=== PATIENT | male | born 1960 | race Two or more races ===

== ENCOUNTER → 2024-03-01 | Outpatient (CLI) | payer BC, SELFPAY | END | disposition home or self-care (01) | LOC: SLDO 12:49 | PROVIDERS: Referring Provider Family Medicine; Visit Provider Family Medicine | DX: L03.116 Cellulitis of left lower limb (principal) | CPT/HCPCS: 87070; 87077; 87186; 87205 ==

== ENCOUNTER → 2024-09-09 | Outpatient (CLI) | payer BC, SELFPAY ==
--- NOTE | 2024-09-09 11:30 | XR_ITS ---
Examination: Abdomen sonogram, Limited Date and time of exam: September 09, 2024 1147 hours INDICATIONS: Diagnosis cirrhosis Technique: Real-time edouard scale transabdominal sonographic images of the upper abdomen obtained. Findings: Negative for gallstones Gallbladder wall 0.3 cm Common bile duct 0.2 cm Pancreatic head 2.7 cm Liver 13.4 cm irregular contour fatty infiltration no focal liver lesions Normal hepatopedal portal venous flow Patent IVC IMPRESSION: Normal gallbladder Cirrhosis, no focal liver lesions
[2024-09-09 13:09] LABS: Basophils # (Auto) 0.1 Thou/mm3 (0.0-0.2); Basophils % (Auto) 1 % (0-2.5); Eosinophils # (Auto) 0.2 Thou/mm3 (0.0-0.5); Eosinophils % (Auto) 3 % (0-10); Hematocrit 38.5 % (41.0-53.0); Hemoglobin 13.4 g/dL (13.5-16.0); Immature Granulocytes % (Auto) 0 % (0-0); Immature Granulocytes Auto 0.03 Thou/mm3 (0.00-0.00); Lymphocytes # (Auto) 1.4 Thou/mm3 (1.0-4.8); Lymphocytes % (Auto) 19 % (10-50); Mean Corpuscular HGB Conc 34.8 g/dl (31.0-37.0); Mean Corpuscular Hemoglobin 30.6 pg (25.0-35.0); Mean Corpuscular Volume 88 fL (80-100); Monocytes # (Auto) 0.7 Thou/mm3 (0.0-0.8); Monocytes % (Auto) 9 % (0-12); Neutrophils # (Auto) 5.1 Thou/mm3 (1.8-7.7); Neutrophils % (Auto) 69 % (37-80); Nucleated Red Blood Cell % 0 /100 WBC (0); Platelet Count 155 Thou/mm3 (140-440); RDW Standard Deviation 41.8 fL (35.1-43.9); Red Blood Count 4.38 Miln/mm3 (4.50-5.90); White Blood Count 7.4 Thou/mm3 (3.8-10.6)
[2024-09-09 13:10] LABS: INR 1.1 (0.9-1.3); Prothrombin Time 11.9 Seconds (9.0-12.2)
[2024-09-09 13:17] LABS: Alanine Aminotransferase 32 U/L (10-49); Albumin, Serum 4.3 gm/dL (3.4-4.8); Albumin/Globulin Ratio 1.4 (1.2-2.2); Alkaline Phosphatase 60 U/L (46-116); Anion Gap 11 (7-16); Aspartate Amino Transferase 25 U/L (0-34); BUN/Creatinine Ratio 12 Ratio (12-20); Bilirubin,Total 0.7 mg/dL (0.3-1.2); Blood Urea Nitrogen 17 mg/dL (9-23); Calcium 8.8 mg/dL (8.3-10.6); Calcium (Corrected) 8.8 mg/dL (8.5-10.1); Carbon Dioxide 23.4 mMol/L (20.0-31.0); Chloride 110 mMol/L (98-107); Creatinine (Component) 1.4 mg/dL (0.6-1.3); Free T4 (Free Thyroxine) 1.42 ng/dL (0.89-1.76); Glucose 134 mg/dL (74-106); Osmolality,Calculated 290 (275-295); Potassium 4.2 mMol/L (3.4-5.1); Sodium 144 mMol/L (136-145); Thyroid Stimulating Hormone 3.75 uIU/mL (0.55-4.78); Total Protein 7.3 gm/dL (5.7-8.2); eGFR 56 See Note
== END | disposition home or self-care (01) ==
LOC: CDIM 11:38 → COPL 11:58
PROVIDERS: Specialist; PCP Family Medicine; Referring Provider Family Medicine; Visit Provider Radiology Diagnostic Radiology
DX: K74.60 Unspecified cirrhosis of liver (principal); E03.0 Congenital hypothyroidism with diffuse goiter; R14.0 Abdominal distension (gaseous); K92.2 Gastrointestinal hemorrhage, unspecified
CPT/HCPCS: 36415; 76705; 80053; 82105; 84439; 84443; 85025; 85610

== ENCOUNTER → 2024-09-30 | Outpatient (CLI) | payer BC, SELFPAY ==
--- NOTE | 2024-09-30 13:49 | XR_ITS ---
Examination: Knee, right , 3 views Technique: Knee AP, lateral, oblique 3 views Date and time of exam: September 30, 2024 at 1404 hours INDICATIONS: Right knee pain 5 months. FINDINGS: Mild osteopenia Total right knee arthroplasty. Satisfactory alignment No fracture IMPRESSION: Total right knee arthroplasty with satisfactory alignment
== END | disposition home or self-care (01) ==
PROVIDERS: PCP Family Medicine; Referring Provider Family Medicine; Visit Provider Family Medicine
DX: M25.561 Pain in right knee (principal); Z96.651 Presence of right artificial knee joint
CPT/HCPCS: 73562

== ENCOUNTER → 2024-10-03 | Outpatient (CLI) | payer BC, SELFPAY ==
--- NOTE | 2024-10-03 10:59 | XR_ITS ---
Examination: Lumbar spine, 5 views Technique: Lumbar spine AP, lateral, coned lateral lower lumbar spine, bilateral obliques 5 views Exam date and time: October 03, 2024 1114 hours INDICATIONS: Low back pain beginning one week ago. FINDINGS: Prominent lumbar spondylosis No lumbar fracture Advanced disc narrowing L5-S1 No spondylolisthesis IMPRESSION: Advanced degenerative disc disease L5-S1 Prominent lumbar spondylosis
--- NOTE | 2024-10-03 10:59 | XR_ITS ---
Examination: Thoracic spine 3 views Technique one AP lateral coned lateral upper dorsal spine 3 views Date and time: October 03, 2024 1117 hours INDICATIONS: Upper back pain beginning one week ago. FINDINGS: Adequate alignment thoracic vertebral bodies No acute thoracic fracture Moderate diffuse thoracic degenerative disc disease Prominent thoracic spondylosis IMPRESSION: Moderate diffuse thoracic degenerative disc disease Prominent thoracic spondylosis
== END | disposition home or self-care (01) ==
LOC: CDIM 10:53
PROVIDERS: PCP Family Medicine; Referring Provider Family Medicine; Visit Provider Family Medicine
DX: M51.379 Other intervertebral disc degeneration, lumbosacral region without mention of lumbar back pain or lower extremity pain (principal); M47.816 Spondylosis without myelopathy or radiculopathy, lumbar region; M51.34 Other intervertebral disc degeneration, thoracic region; M47.814 Spondylosis without myelopathy or radiculopathy, thoracic region
CPT/HCPCS: 72072; 72110

== ENCOUNTER 2024-11-04 08:30 | Day surgery (SDC) | payer BC, SELFPAY ==
[2024-11-01 14:36] VITALS: BMI 29.2
[2024-11-04] VITALS (9 sets, daily range): BP systolic 107–148; BP diastolic 69–91; PULSE 64–96; RESP 11–22; TEMP 36.6; O2SAT 95–100; BMI 30.1
[2024-11-04] MEDS: SODIUM CHLORIDE 0.9% 500 ML 500 ML 20 ML IV (10:49)
[2024-11-04] MEDS: MIDAZOLAM INJ 1 MG/ML VIAL 2 ML (ASD USE ONLY) 2 MG IVP (10:49)
[2024-11-04] MEDS: fentaNYL CIT INJ 50 mCg/ML AMP 2ML (ASD USE ONLY) IVP (10:49)
[2024-11-04] MEDS: BENZOCAINE 20% (Hurricaine) SPRAY 1 DOSE TOP (10:49)
== END 2024-11-04 11:31 | disposition home or self-care (01) ==
PROVIDERS: PCP Family Medicine; Referring Provider Specialist; Visit Provider Specialist
PROC: (CPT 43239; principal; 2024-11-04 09:45)
DX: K31.89 Other diseases of stomach and duodenum (principal); K74.60 Unspecified cirrhosis of liver; I85.10 Secondary esophageal varices without bleeding
CPT/HCPCS: 43235; J1200; J2250; J3010; J7999; A9270

== ENCOUNTER → 2024-12-03 | Outpatient (CLI) | payer BC, SELFPAY ==
--- NOTE | 2024-12-03 13:30 | XR_ITS ---
Examination: CT thoracic spine, without contrast. 2-D sagittal reconstructions. 2-D coronal reconstructions. 3-D reconstructions. Date and time of exam:December 03, 2024 1405 hours INDICATIONS: Mid back pain 2 months CTDI: vol (mGy):32.3 DLP: (mGycm):1144 Technique: Multiple 1.25 mm axial sections of the thoracic spine without intravenous contrast have been obtained. 2-D sagittal and coronal reconstructions have been obtained. 3-D reconstructions have been obtained. Low dose protocols were performed. One or more of the following dose reduction techniques were used; automated exposure control, adjustment of the mA and/or KV according to patient size, use of iterative reconstruction technique. Findings: Significant osteopenia No thoracic fracture Prominent thoracic spondylosis. Mild to moderate diffuse thoracic disc narrowing. Thoracic pedicles laminae and transverse processes appear intact Axial images demonstrate no focal thoracic disc protrusions IMPRESSION: Mild to moderate diffuse thoracic degenerative disc disease No significant spinal stenosis
--- NOTE | 2024-12-03 14:00 | XR_ITS ---
Examination: CT lumbar spine, without contrast. 2-D sagittal reconstructions. 2-D coronal reconstructions. 3-D reconstructions. Date and time of exam:December 03, 2024 at 1405 hours INDICATIONS: Low back pain beginning 2 months ago CTDI: vol (mGy):23.9 DLP: (mGycm):624 Technique: Multiple 1.25 mm axial sections of the lumbar spine without intravenous contrast have been obtained. 2-D sagittal and coronal reconstructions have been obtained. 3-D reconstructions have been obtained. Low dose protocols were performed. One or more of the following dose reduction techniques were used; automated exposure control, adjustment of the mA and/or KV according to patient size, use of iterative reconstruction technique. Findings: Severe osteopenia No lumbar fracture Prominent lumbar spondylosis Diffuse [id number] lumbar disc narrowing most prominent L5-S1 No spondylolisthesis Lumbar pedicles laminated transverse and posterior spinous processes intact L5-S1 no disc protrusion L4-L5 severe overall spinal stenosis, axial image 88, 6 mm central lumbar disc bulge, facet arthropathy and thickening of ligamentum flavum circumferentially narrowing the thecal sac L3-L4 no disc protrusion L2-L3 no disc protrusion L1-L2 no disc protrusion IMPRESSION: Severe overall spinal stenosis L4-L5 as above, consider correlation with MRI lumbar spine without contrast follow-up
== END | disposition home or self-care (01) ==
LOC: CCTX 13:45
PROVIDERS: PCP Family Medicine; Referring Provider Family Medicine; Visit Provider Family Medicine
DX: M51.34 Other intervertebral disc degeneration, thoracic region (principal); M48.061 Spinal stenosis, lumbar region without neurogenic claudication
CPT/HCPCS: 72128; 72131

== ENCOUNTER → 2025-04-14 | Outpatient (CLI) | payer MEDICARE, SELFPAY ==
--- NOTE | 2025-04-14 14:30 | XR_ITS ---
Examination: Abdomen sonogram, complete Date and time of exam: 04/14/2025 at 2:44 p.m Comparison study 09/09/2024 CLINICAL HISTORY: Right upper quadrant pain for 4 days, previous ultrasound had shown no stones in the gallbladder but cirrhosis. Technique: Multiple real-time grayscale transabdominal sonographic images of the abdomen have been obtained. Findings: On today's gallbladder ultrasound, in contrast to the previous study at which time the gallbladder was adequately distended, on today's study the gallbladder is significantly contracted. However no stones are seen, gallbladder wall appears normal, common bile duct appears normal measuring 0.25 cm. There is normal size and directional color flow in both the portal vein and hepatic veins. The pancreas is not well visualized, it is obscured by bowel gas There is markedly abnormal increased echogenicity noted throughout the liver, no focal lesions are seen in the liver the right lobe is normal in size, the left lobe is markedly enlarged. There is abnormal surface contour nodularity of the liver, indicating cirrhosis abdominal aorta appears normal in size., The longitudinal dimensions of the right and left kidneys are 9.6 and 9.8 cm respectively. These are normal for the patient's age, and the cortical thickness of the right kidney is 2 cm and 1.8 cm in the left kidney, these are normal. There is good color flow vascularity seen throughout both right and left kidneys, there is no obstructive uropathy and there are no calculi or mass lesion seen in either kidney. There is a very minimally lobulated surface contour in both kidneys not felt to be of major pathologic significance. The length of the spleen is 12 cm which is mildly enlarged. IMPRESSION: 1. The gallbladder is partially contracted on today's exam, compared with its moderately dilated appearance of the previous ultrasound, the gallbladder wall appears normal no stones are seen. Common bile duct is normal 2. both kidneys appear essentially unremarkable for the patient's age 3. The appearance of the liver is indicative of cirrhosis, no ascites is seen
== END | disposition home or self-care (01) ==
PROVIDERS: PCP Family Medicine; Referring Provider Family Medicine; Visit Provider Family Medicine
DX: K82.0 Obstruction of gallbladder (principal); K74.60 Unspecified cirrhosis of liver
CPT/HCPCS: 76700